=== PATIENT | female | born 1965 | race Two or more races ===

== ENCOUNTER 2018-02-06 15:16 | Emergency (ER) | payer OTHER, SELFPAY ==
[~2018-02-06] VITALS: Ht 149.9 cm; Wt 90.7 kg
[2018-02-06 15:34] VITALS: BP 176/86
[2018-02-06] MEDS ORDERED: DIABETES (16:01)
[2018-02-06] MEDS ORDERED: HTN (16:01)
[2018-02-06] MEDS ORDERED: DIAZEPAM 5 MG TABLET ONE (16:21)
[2018-02-06] MEDS ORDERED: IBUPROFEN 200 MG TABLET ONE (16:21)
[2018-02-06] MEDS ORDERED: IBUPROFEN 200 MG TABLET PO ONE (16:30)
[2018-02-06] MEDS ORDERED: DIAZEPAM 5 MG TABLET PO ONE (16:30)
== END 2018-02-06 16:53 | disposition home or self-care (01) ==
LOC: ED 16:50
DX: S90.31XA Contusion of right foot, initial encounter (principal); M51.36 Other intervertebral disc degeneration, lumbar region; I10 Essential (primary) hypertension; E11.9 Type 2 diabetes mellitus without complications; W31.89XA Contact with other specified machinery, initial encounter; Y93.89 Activity, other specified; Y92.89 Other specified places as the place of occurrence of the external cause; Y99.0 Civilian activity done for income or pay
CPT/HCPCS: 72110; 88184; 88185; 99284

== ENCOUNTER 2019-10-04 14:40 | Emergency (ER) | payer SELFPAY ==
[~2019-10-04] VITALS: Ht 152.4 cm; Wt 59.9 kg
[~2019-10-04 14:40] MED LIST: ASPI-496 PO; ATOR10TA9 PO; DIABETES; HTN; METF500T17 PO
--- NOTE | 2019-10-04 15:07 | NUR ---
PT PRESENTING TO ER FOR BODY ACHES, FATIGUE, COUGH, UPPER CHEST PAIN RADIATING TO BACK AND LEFT CALF CRAMPING STARTING YESTERDAY. CONNECTED TO ALL MONITORING, TACHY HR, OTHER VSS AT THIS TIME. FAMILY AT BEDSIDE. CALL LIGHT WITHIN REACH. AWAITING MD ASSESSMENT AND ORDERS AT THIS TIME
[2019-10-04 15:39] LABS: BASOPHILS # (AUTO) 0.03 x10^3/uL (0-0.1); BASOPHILS % (AUTO) 0 % (0-1); EOSINOPHILS % (AUTO) 0 % (1-7); LYMPHOCYTES % (AUTO) 10 % (22-44); MD NO; MEAN CORPUSCULAR HEMOGLOBIN 31.2 pg (27.0-34.8); MEAN CORPUSCULAR HGB CONC 33.3 g/dL (32.4-35.8); MEAN CORPUSCULAR VOLUME 93.7 fL (80-100); MEAN PLATELET VOLUME 9.1 fL (7.4-10.4); MONOCYTES # (AUTO) 1.02 x10^3/uL (0.2-0.8); MONOCYTES % (AUTO) 8 % (2-9); NEUTROPHILS % (AUTO) 81 % (42-75); PLATELET COUNT 202 x10^3/uL (130-400); RED BLOOD COUNT 4.83 x10^6/uL (3.82-5.3); RED CELL DISTRIBUTION WIDTH 12.7 % (9.6-15.2)
[2019-10-04 15:52] LABS: ALANINE AMINOTRANSFERASE 23 U/L (12-78); ALBUMIN 3.5 g/dL (3.4-5.0); ANION GAP 6 mmol/L (5-15); CALCIUM 10.2 mg/dL (8.5-10.1); CHLORIDE 104 mmol/L (98-107)
[2019-10-04 15:54] LABS: ALKALINE PHOSPHATASE 124 U/L (45-117); BILIRUBIN,TOTAL 1.2 mg/dL (0.2-1.0)
--- NOTE | 2019-10-04 15:55 | NUR ---
BREAK RN: PT OOB AMBULATE TO BATHROOM, INSTRUCTED ON COLLECTION OF URINE.
--- NOTE | 2019-10-04 16:11 | NUR ---
UA COLLECTED AND SENT TO LAB
[2019-10-04 16:38] LABS: MICROSCOPIC INDICATED
--- NOTE | 2019-10-04 17:07 | NUR ---
MD TO BEDSIDE AT THIS TIME. PT RESTING COMFORTABLY IN BED, SLEEPING INTERMITTENTLY. VSS
[2019-10-04 17:08] VITALS: BP 122/66
[2019-10-04] MEDS ORDERED: CEFDINIR 300 MG CAPSULE ONE (17:11)
[2019-10-04] MEDS ORDERED: CEFDINIR 300 MG CAPSULE PO ONE (17:30)
== END 2019-10-04 17:29 | disposition home or self-care (01) ==
LOC: ED 16:24
DX: N30.00 Acute cystitis without hematuria (principal); I10 Essential (primary) hypertension; E11.9 Type 2 diabetes mellitus without complications; R00.0 Tachycardia, unspecified
CPT/HCPCS: 36415; 71046; 80053; 81001; 85025; 87077; 87086; 87186; 93005; 99285

== ENCOUNTER 2020-12-05 18:22 | Emergency (ER) | payer MEDICAID ==
[~2020-12-05] VITALS: Ht 152.4 cm; Wt 57.6 kg
--- NOTE | 2020-12-05 19:21 | NUR ---
PT AMBULATES FROM LOBBY TO ROOM WITH STEADY GAIT
--- NOTE | 2020-12-05 19:31 | NUR ---
PT AMBULATES TO RESTROOM WITH STEADY GAIT FOR UA.
--- NOTE | 2020-12-05 20:01 | NUR ---
REPORT OF PT TO SOPH[facility]AD[facility]. ALL QUESTIONS ANSWERED.
[2020-12-05 20:25] LABS: BASOPHILS % (AUTO) 0 % (0-1); EOSINOPHILS % (AUTO) 1 % (1-7); LYMPHOCYTES % (AUTO) 26 % (22-44); MEAN CORPUSCULAR HEMOGLOBIN 31.6 pg (27.0-34.8); MEAN CORPUSCULAR HGB CONC 34.6 g/dL (32.4-35.8); MEAN PLATELET VOLUME 10.3 fL (7.4-10.4); MONOCYTES % (AUTO) 8 % (2-9); NEUTROPHILS % (AUTO) 65 % (42-75); PLATELET COUNT 186 x10^3/uL (130-400); RED BLOOD COUNT 4.87 x10^6/uL (3.82-5.3); RED CELL DISTRIBUTION WIDTH 12.8 % (9.6-15.2)
[2020-12-05] MEDS ORDERED: SODIUM CHLORIDE FLUSH 10ML SYR IVF ONE (20:30)
[2020-12-05] MEDS ORDERED: SODIUM CHLORIDE 0.9% 1,000ML IVBOLUS ONE (20:30)
[2020-12-05] MEDS ORDERED: ONDANSETRON 2MG/ML, 2ML IVPush ONE (20:30)
[2020-12-05] MEDS ORDERED: MORPHINE SULFATE 4 MG/ML, 1ML IVPush PRN (20:30)
[2020-12-05 20:32] LABS: ALANINE AMINOTRANSFERASE 33 U/L (12-78); ANION GAP 5 mmol/L (5-15); CALCIUM 10.8 mg/dL (8.5-10.1); CHLORIDE 100 mmol/L (98-107); CREATININE 0.74 mg/dL (0.55-1.02)
[2020-12-05] MEDS ORDERED: MORPHINE SULFATE 4 MG/ML, 1ML ONE (20:32)
[2020-12-05] MEDS ORDERED: ONDANSETRON 2MG/ML, 2ML ONE (20:32)
[2020-12-05 20:34] LABS: ALKALINE PHOSPHATASE 94 U/L (45-117); BILIRUBIN,TOTAL 1.2 mg/dL (0.2-1.0); TOTAL PROTEIN 8.1 g/dL (6.4-8.2)
[2020-12-05 22:15] VITALS: BP 123/75
== END 2020-12-05 22:26 | disposition home or self-care (01) ==
LOC: ED 21:31
DX: R10.13 Epigastric pain (principal); R10.10 Upper abdominal pain, unspecified; R11.2 Nausea with vomiting, unspecified; R19.7 Diarrhea, unspecified; R00.0 Tachycardia, unspecified; I10 Essential (primary) hypertension; E11.9 Type 2 diabetes mellitus without complications
CPT/HCPCS: 36415; 71045; 76700; 80053; 83690; 85025; 93005; 96361; 96374; 96375; 99285; J2270; J2405; J7030

== ENCOUNTER 2020-12-15 23:53 | Emergency (ER) | payer MEDICAID ==
[~2020-12-15] VITALS: Ht 152.4 cm; Wt 60.0 kg
--- NOTE | 2020-12-16 00:31 | NUR ---
NO ANS WHEN CALLED FOR ROOM AT THIS TIME.
--- NOTE | 2020-12-16 00:34 | NUR ---
TO ROOM FROM LOBBY VIA WHEELCHAIR.
[2020-12-16] MEDS ORDERED: OXYcodone/APAP 5/325MG TABLET ONE (00:52)
[2020-12-16] MEDS ORDERED: METHOCARBAMOL 750 MG TABLET ONE (00:52)
[2020-12-16] MEDS ORDERED: OXYcodone/APAP 5/325MG TABLET PO ONE (01:00)
[2020-12-16] MEDS ORDERED: METHOCARBAMOL 750 MG TABLET PO ONE (01:00)
--- NOTE | 2020-12-16 01:01 | NUR ---
PT C/O OF LOWER BACK PAIN THAT RADIATS DOWN HER LEG SINCE TONIGHT PT DENIES INJURY TO SITE. CMS INTACT DISTAL TO INJURY [employer] DTO MONITORS. VSS WITH SLIGHTLY ELEVATED HR. BED IN LOW POSITION, RAILS ENGAGED. CALL LIGHT ON LAP. WESLY BECERRA
[2020-12-16 01:36] VITALS: BP 135/69
== END 2020-12-16 01:56 | disposition home or self-care (01) ==
LOC: ED 12-16 00:01
DX: M54.32 Sciatica, left side (principal); I10 Essential (primary) hypertension; E11.9 Type 2 diabetes mellitus without complications
CPT/HCPCS: 99283